=== PATIENT | female | born 1990 | race Caucasian/White ===

== ENCOUNTER 2018-12-17 14:00 | Emergency (ER) | payer OTHER, MEDICAID ==
[2018-12-17 14:54] VITALS: BP 102/66
--- NOTE | 2018-12-17 15:32 | EDM.PDOC ---
ED HPI GENERAL MEDICAL PROBLEM - General Chief Complaint: General Stated Complaint: chest pains Time Seen by Provider: 12/17/18 14:55 Source of Information: Reports: Patient History Limitations: Reports: No Limitations - History of Present Illness INITIAL COMMENTS - FREE TEXT/NARRATIVE: 28-year-old female with left-sided chest pain for the past 12 hours. She was doing some housework last night when she developed a sharpness in the upper left chest. It's been bothering her ever since but she slept well. Today when she moves a certain way or takes a deep breath it hurts so she wanted it checked. No fevers or chills, no shortness of breath, no radiation of pain to her back. She is breast-feeding without difficulty. Onset: Unknown/Unsure Duration: Hour(s): (Intermittently for 12 hours) Location: Reports: Chest - Related Data Allergies Allergy/AdvReac Type Severity Reaction Status Date / Time amoxicillin [Amoxicillin] Allergy Mild Rash Verified 12/17/18 14:44 latex Allergy Mild Rash Verified 12/17/18 14:44 Home Meds: Home Meds Calcium Citrate/Vitamin D3 [Citracal + D Maximum Caplet] 1 each PO DAILY [History] Multivitamin with Minerals [Multiple Vitamin] 1 tab PO DAILY 03/08/13 [History] Past Medical History Other Cardiovascular History: palpations [employer] History: Reports: Social & Family History - Tobacco Use Smoking Status *Q: Never Smoker - Caffeine Use Caffeine Use: Reports: None - Recreational Drug Use Recreational Drug Use: No ED ROS GENERAL - Review of Systems Review Of Systems: See Below Constitutional: Denies: Fever, Chills HEENT: Reports: No Symptoms Respiratory: Reports: Pleuritic Chest Pain. Denies: Shortness of Breath, Cough Cardiovascular: Reports: Chest Pain GI/Abdominal: Denies: Abdominal Pain, Nausea, Vomiting : Reports: No Symptoms Skin: Reports: No Symptoms Neurological: Reports: No Symptoms Psychiatric: Reports: No Symptoms ED EXAM, GENERAL - Physical Exam Exam: See Below Free Text/Narrative:: Vital signs are completely normal, pulse is 62, O2 saturations 98% and no laboring with breathing. Exam Limited By: No Limitations General Appearance: Alert, No Apparent Distress Throat/Mouth: Normal Inspection Head: Atraumatic Neck: Normal Inspection Respiratory/Chest: No Respiratory Distress, Lungs Clear, Other (Some tenderness to palpation across the lateral costochondral junction of the anterior left chest) Cardiovascular: Regular Rate, Rhythm. No: Extra Beats Extremities: Normal Inspection. No: Pedal Edema Neurological: Alert, Oriented Course - Vital Signs Last Recorded V/S: Last Vital Signs Temp 95.2 F L 12/17/18 14:52 Pulse 90 12/17/18 14:53 Resp 13 12/17/18 14:53 BP 102/66 12/17/18 14:53 Pulse Ox 96 12/17/18 14:53 - Re-Assessments/Exams Free Text/Narrative Re-Assessment/Exam: 12/17/18 15:30 Two-view chest x-ray was done which was completely normal. Patient was encouraged to try a few days of anti-inflammatory such as naproxen or ibuprofen , increase activity as tolerated and return if not improving. Departure - Departure Time of Disposition: 16:00 Disposition: Home, Self-Care 01 Condition: Good Clinical Impression: Acute costochondritis - Discharge Information Instructions: Costochondritis, [id number] Referrals: PCP,None [Primary Care Provider] - Forms: ED Department Discharge Care Plan Goals: Activity as tolerated, try a regular anti-inflammatory for the next 2-3 days such as ibuprofen or naproxen, and consider rechecking early next week if not improving satisfactorily. Return sooner if worsening such as fever or shortness of breath.
--- NOTE | 2018-12-17 15:50 | CRLCR ---
INDICATION: Dyspnea. TECHNIQUE: PA and lateral. COMPARISON: None. FINDINGS: Lungs and pleural spaces clear. Heart size and pulmonary vasculature within normal limits. No significant osseous abnormality. IMPRESSION: Negative chest. Dictated by Jeovanny Erickson MD @ Dec 17 2018 3:48PM Signed by Dr. Jeovanny Erickson @ Dec 17 2018 3:49PM
== END 2018-12-17 16:03 | disposition home or self-care (01) ==
LOC: JP.ED 14:00
DX: M94.0 Chondrocostal junction syndrome [Tietze] (principal); Z88.1 Allergy status to other antibiotic agents; Z91.040 Latex allergy status; Z79.899 Other long term (current) drug therapy
CPT/HCPCS: 71046; 99284-25

== ENCOUNTER 2022-02-24 20:17 | Emergency (ER) | payer BC, MEDICAID ==
[2022-02-24] MEDS ORDERED: Alum Hydrox/Mag Hydrox/Simeth 15 ML, Lidocaine 2% 15 ML PO ONE ×2 (20:57)
[2022-02-24 21:16] LABS: ESTIMATED GFR 119 mL/min (>60); TROPONIN I HIGH SENSITIVITY 11.7 pg/mL (<=60.3)
[2022-02-24 21:39] VITALS: BP 108/70
[2022-02-24 21:55] VITALS: PULSE 60
== END 2022-02-24 22:00 | disposition home or self-care (01) ==
LOC: JP.ED 20:17
DX: R07.89 Other chest pain (principal); Z88.1 Allergy status to other antibiotic agents; Z91.040 Latex allergy status; Z79.899 Other long term (current) drug therapy
CPT/HCPCS: 36415; 71046; 80053; 84484; 85025; 85379; 93005; 99285; A9270

== ENCOUNTER 2024-09-21 08:56 | Day surgery (SDC) | payer BC, MEDICAID, OTHER ==
[~2024-09-21 08:56] MED LIST: Lidocaine 1% with EPINEPHrine 1:100,000 50 ML MDV ONE; Midazolam 1 MG/ML 2 ML SDV ONE; Propofol 200 MG/20 ML SDV ONE; fentaNYL 100 MCG/2 ML SDV ONE
[2024-09-21] MEDS ORDERED: Sodium Tetradecyl Sulfate 1% 20 MG/2 ML SDV ONE (09:10)
[2024-09-21] MEDS ORDERED: Sodium Chloride 0.9% 0 ML ONE (09:11)
[2024-09-21 09:28] VITALS: BP 109/68; PULSE 98
[2024-09-21] MEDS ORDERED: Lactated Ringers 1,000 ML IV SCH (10:00)
[2024-09-21] MEDS ORDERED: Lidocaine 1% w/EPINEPHrine 50 ML, Sodium Bicarbonate 5 MEQ in Sodium Chloride 0.9% 950 ML INJECT ONE (10:15)
== END 2024-09-21 09:55 | disposition home or self-care (01) ==
LOC: JP.SDS 08:56 → EEVIPCON 08:56 → JP.SDS 09:55
PROVIDERS: ATTEND Surgery
DX: I87.2 Venous insufficiency (chronic) (peripheral) (principal); Z53.8 Procedure and treatment not carried out for other reasons
CPT/HCPCS: 81025; J1642; J2250; J2704; J3010

== ENCOUNTER 2024-11-30 08:06 | Day surgery (SDC) | payer OTHER ==
[~2024-11-30 08:06] MED LIST changes: -Lidocaine 1% with EPINEPHrine 1:100,000 50 ML MDV ONE
[2024-11-30] MEDS: Lactated Ringers 1,000 ML IV SCH (08:56)
[2024-11-30] MEDS: Lidocaine 1% w/EPINEPHrine 50 ML, Sodium Bicarbonate 5 MEQ in Sodium Chloride 0.9% 950 ML INJECT ONE (09:27)
[2024-11-30] MEDS: Lidocaine 1% with EPINEPHrine 1:100,000 50 ML MDV ONE (09:28)
[2024-11-30 10:38] VITALS: BP 91/58; PULSE 69
== END 2024-11-30 11:02 | disposition home or self-care (01) ==
LOC: JP.SDS 08:06
PROVIDERS: ATTEND Surgery
DX: I83.11 Varicose veins of right lower extremity with inflammation (principal)
CPT/HCPCS: 36475; 64999; 76998; 81025; J1642; J2250; J2704; J3010; J7030; J7120; 01930-QZ; J3490